=== PATIENT | male | born 1970 | race Caucasian/White ===

== ENCOUNTER 2016-10-25 10:31 | Outpatient (CLI) | payer OTHER ==
--- NOTE | 2016-10-25 13:16 | DIAGNOSTIC IMAGING REPORT ---
PROCEDURE: MR LUMBAR SPINE W/O CONTRAST INDICATION: LUMBAR RADICULAPATHY ACUTE TECHNIQUE: T1, T2, and STIR sagittal sequences. T2 and T1 axial sequences. COMPARISON: Plain films 10/23/2016 FINDINGS: Alignment and curvature: Normal. Vertebral bodies: Small superior endplate Schmorl's nodes in the lower thoracic spine, L1, L2, and L3. Normal vertebral body height and marrow signal. Disc spaces: Minor disc height loss and desiccation L2-3. Slight disc desiccation L5-S1. Spinal canal: The visible distal cord is normal signal. Conus terminates at L1. No unusual central canal masses. Paraspinal soft tissues: Normal. L1-2: Normal. L2-3: Minimal diffuse circumferential disc bulge. L3-4: Minor diffuse circumferential disc bulge. L4-5: Mild diffuse circumferential disc bulge. Mild left facet arthropathy and ligamentum flavum hypertrophy. L5-S1: Minimal broad-based posterior disc bulge. Mild facet hypertrophy and ligamentum flavum hypertrophy. Slight narrowing of the lateral recess with encroachment on the nerve roots bilaterally. IMPRESSION: 1. Mild lateral recess narrowing at the L5-S1 level, potentially causing bilateral S1 radiculopathy. Correlate clinically. 2. Otherwise minor degenerative changes.
== END 2016-10-25 23:00 ==
LOC: MRI SRH 10:31
DX: M48.07 Spinal stenosis, lumbosacral region (principal)